=== PATIENT | male | born 1970 | race Asian ===

== ENCOUNTER 2021-08-26 19:16 | Emergency (ER) | payer MEDICAID, OTHER ==
[~2021-08-26] VITALS: Ht 172.7 cm; Wt 77.1 kg
[2021-08-26 19:16] VITALS: BP 0/0
[2021-08-26] MEDS ORDERED: EPINEPHrine HCL 1 MG/10 ML SYRG IV ONE (19:20)
[2021-08-26] MEDS ORDERED: SODIUM BICARBONATE 8.4% INJ 50ML SYRINGE IV ONE (19:20)
== END 2021-08-26 19:30 ==
LOC: EDBD 19:16 → ER 19:19
DX: I46.9 Cardiac arrest, cause unspecified (principal); Z20.822 Contact with and (suspected) exposure to COVID-19
CPT/HCPCS: 36415; 87426; 92950; 99291; J0171